=== PATIENT | female | born 1990 | race American Indian/Alaskan Native ===

== ENCOUNTER 2017-03-24 12:40 | Emergency (ER) | payer OTHER ==
[2017-03-24 13:43] LABS: Hematocrit 41.3 % (30.3-42.9); Hemoglobin 13.7 gm/dl (10.1-14.3); Mean Corpuscular HGB Conc 33 % (30-34); Mean Corpuscular Hemoglobin 27 pg (28-32); Mean Corpuscular Volume 80 fl (79-97); Platelet Count 429 K/mm3 (140-440); Red Blood Count 5.17 M/mm3 (3.65-5.03); White Blood Count 12.8 K/mm3 (4.5-11.0)
[2017-03-24 13:47] LABS: Anion Gap 19 mmol/L; BUN/Creatinine Ratio 18.33; Blood Urea Nitrogen 11 mg/dL (7-17); Calcium 9.2 mg/dL (8.4-10.2); Carbon Dioxide 21 mmol/L (22-30); Glucose 117 mg/dL (65-100); Potassium 4.4 mmol/L (3.6-5.0); Sodium 136 mmol/L (137-145)
[2017-03-24] MEDS ORDERED: NACL 0.9% 1000 ML 1,000 ML IV ONE (14:08)
[2017-03-24] MEDS ORDERED: REGLAN IV ONE (14:09)
[2017-03-24] MEDS ORDERED: BENADRYL IV ONE (14:09)
--- NOTE | 2017-03-24 14:10 | Emergency Department Report ---
ED Seizure HPI - General Chief Complaint: Seizure Stated Complaint: SEIZURE Time Seen by Provider: 03/24/17 14:01 Source: patient, family, EMS, RN notes reviewed Mode of arrival: Stretcher Limitations: No Limitations - History of Present Illness Initial Comments: This is a 26-year-old female. She is previously unknown to me. She does not have a primary care doctor. She reports a past medical history of seizure disorder. She is not taking any antiepileptic drugs. Patient brought to the hospital by EMS for out of hospital seizure. As per EMS documentation, patient alert and oriented 3. Patient complains of mild headache, which started yesterday, which is not similar thunderclap in nature. The headache did not recheck swollen intensity within an hour. There is no neck pain or neck stiffness. There is no chest pain or shortness of breath. There is no abdominal pain. There is no cough, there are no irritative or obstructive urinary symptoms. The patient did not bite her tongue, but she did not urinate or defecate on herself that she is aware of. She does complain of nonspecific generalized myoclonic jerks. She can't recall her last seizure prior to today. MD Complaint: seizure -: Sudden Description of Episode: loss of consciousness -: second(s) Witnessed:: Yes Trauma: No Seizure History: known seizure disorder, history of non-compliance Possible Precipitating Event: none Associated Symptoms: denies: chest pain, confusion, cough, fever/chills, loss of appetite, malaise Treatments Prior to Arrival: none - Related Data Previous Rx's Medication Instructions Recorded Last Taken Type levETIRAcetam [Keppra TAB] 1,000 mg PO BID #60 tab 03/24/17 Unknown Rx Allergies Allergy/AdvReac Type Severity Reaction Status Date / Time Penicillins Allergy Unknown Verified 03/24/17 13:04 ED Review of Systems ROS: Stated complaint: SEIZURE Other details as noted in HPI Constitutional: malaise. denies: fever Eyes: denies: vision change ENT: denies: epistaxis Respiratory: denies: cough Cardiovascular: denies: chest pain Gastrointestinal: denies: abdominal pain Genitourinary: denies: urgency, dysuria Musculoskeletal: denies: back pain Skin: denies: lesions Neurological: headache. denies: weakness Psychiatric: denies: anxiety ED Past Medical Hx - Past Medical History Previous Medical History?: Yes Hx Seizures: Yes - Surgical History Past Surgical History?: No - Social History Smoking Status: Unknown if ever smoked - Medications Home Medications: Home Medications Medication Instructions Recorded Confirmed Last Taken Type levETIRAcetam [Keppra TAB] 1,000 mg PO BID #60 tab 03/24/17 Unknown Rx ED Physical Exam - General Limitations: No Limitations General appearance: alert, anxious, obese, other (patient is awake, alert and talking, but is expansion nonspecific generalized jerking motion, which is bilateral and not lateralizing.) - Head Head exam: Present: atraumatic, normocephalic - Eye Eye exam: Present: normal appearance, PERRL, EOMI, other (visual acuity intact to finger counting, color perception, reading at a close distance). Absent: nystagmus - ENT ENT exam: Present: normal exam, normal orophraynx, mucous membranes moist, normal external ear exam - Neck Neck exam: Present: normal inspection, full ROM. Absent: tenderness, meningismus - Respiratory Respiratory exam: Present: normal lung sounds bilaterally. Absent: respiratory distress, wheezes, rales, rhonchi, stridor - Cardiovascular Cardiovascular Exam: Present: regular rate, normal rhythm, normal heart sounds. Absent: bradycardia, tachycardia, irregular rhythm, systolic murmur, diastolic murmur, rubs, gallop - GI/Abdominal GI/Abdominal exam: Present: soft, normal bowel sounds. Absent: distended, tenderness, guarding, rebound, rigid, pulsatile mass - Extremities Exam Extremities exam: Present: normal inspection, full ROM, normal capillary refill. Absent: tenderness, pedal edema, joint swelling - Back Exam Back exam: Present: normal inspection, full ROM. Absent: tenderness, CVA tenderness (R), CVA tenderness (L), muscle spasm, paraspinal tenderness, vertebral tenderness - Neurological Exam Neurological exam: Present: alert, oriented X3, normal gait, other (Extraocular movements intact. Tongue midline. No facial droop. Facial sensation intact to light touch in the V1, V2, V3 distribution bilaterally. 5 and 5 strength in 4 extremities.. Sensation is intact to light touch in 4 extremities.). Absent : motor sensory deficit - Psychiatric Psychiatric exam: Present: normal affect, normal mood - Skin Skin exam: Present: warm, dry, intact, normal color. Absent: rash ED Course Vital Signs 03/24/17 03/24/17 03/24/17 12:57 15:00 15:31 Temperature 98.8 F 99.0 F Pulse Rate 122 H 120 H Respiratory 16 16 Rate Blood Pressure 140/79 Blood Pressure 135/76 [Left] O2 Sat by Pulse 100 100 Oximetry 03/24/17 03/24/17 16:10 18:12 Temperature 99.3 F Pulse Rate 104 H 86 Respiratory 16 16 Rate Blood Pressure Blood Pressure 98/34 98/69 [Left] O2 Sat by Pulse 100 100 Oximetry ED Medical Decision Making - Lab Data Result diagrams: 03/24/17 13:18 03/24/17 13:18 Vital Signs 03/24/17 03/24/17 03/24/17 12:57 15:00 15:31 Temperature 98.8 F 99.0 F Pulse Rate 122 H 120 H Respiratory 16 16 Rate Blood Pressure 140/79 Blood Pressure 135/76 [Left] O2 Sat by Pulse 100 100 Oximetry 03/24/17 16:10 Temperature Pulse Rate 104 H Respiratory 16 Rate Blood Pressure Blood Pressure 98/34 [Left] O2 Sat by Pulse 100 Oximetry Lab Results 03/24/17 03/24/17 03/24/17 Range/Units 13:18 13:18 13:26 WBC 12.8 H (4.5-11.0) K/mm3 RBC 5.17 H (3.65-5.03) M/mm3 Hgb 13.7 (10.1-14.3) gm/dl Hct 41.3 (30.3-42.9) % MCV 80 (79-97) fl MCH 27 L (28-32) pg MCHC 33 (30-34) % RDW 15.0 (13.2-15.2) % Plt Count 429 (140-440) K/mm3 Add Manual Diff Complete Total Counted 100 Seg Neuts % (Manual) 71.0 H (40.0-70.0) % Band Neutrophils % 0 % Lymphocytes % (Manual) 18.0 (13.4-35.0) % Reactive Lymphs % (Man) 0 % Monocytes % (Manual) 6.0 (0.0-7.3) % Eosinophils % (Manual) 3.0 (0.0-4.3) % Basophils % (Manual) 1.0 (0.0-1.8) % Metamyelocytes % 1.0 % Myelocytes % 0 % Promyelocytes % 0 % Blast Cells % 0 % Nucleated RBC % Not Reportable Seg Neutrophils # Man 9.1 H (1.8-7.7) K/mm3 Band Neutrophils # 0.0 K/mm3 Lymphocytes # (Manual) 2.3 (1.2-5.4) K/mm3 Abs React Lymphs (Man) 0.0 K/mm3 Monocytes # (Manual) 0.8 (0.0-0.8) K/mm3 Eosinophils # (Manual) 0.4 (0.0-0.4) K/mm3 Basophils # (Manual) 0.1 (0.0-0.1) K/mm3 Metamyelocytes # 0.1 K/mm3 Myelocytes # 0.0 K/mm3 Promyelocytes # 0.0 K/mm3 Blast Cells # 0.0 K/mm3 WBC Morphology Not Reportable Hypersegmented Neuts Not Reportable Hyposegmented Neuts Not Reportable Hypogranular Neuts Not Reportable Smudge Cells Not Reportable Toxic Granulation Not Reportable Toxic Vacuolation Not Reportable Dohle Bodies Not Reportable Pelger-Huet Anomaly Not Reportable Antony Rods Not Reportable Platelet Estimate Appears normal Clumped Platelets Not Reportable Plt Clumps, EDTA Not Reportable Large Platelets Not Reportable Giant Platelets Not Reportable Platelet Satelliting Not Reportable Plt Morphology Comment Not Reportable RBC Morphology Normal Dimorphic RBCs Not Reportable Polychromasia Not Reportable Hypochromasia Not Reportable Poikilocytosis Not Reportable Anisocytosis Not Reportable Microcytosis Not Reportable Macrocytosis Not Reportable Spherocytes Not Reportable Pappenheimer Bodies Not Reportable Sickle Cells Not Reportable Target Cells Not Reportable Tear Drop Cells Not Reportable Ovalocytes Not Reportable Helmet Cells Not Reportable [place] Bodies Not Reportable [place] Rings Not Reportable [place] Cells Not Reportable Bite Cells Not Reportable Crenated Cell Not Reportable Elliptocytes Not Reportable Acanthocytes (Spur) Not Reportable Rouleaux Not Reportable Hemoglobin C Crystals Not Reportable Schistocytes Not Reportable Malaria parasites Not Reportable Vicente Bodies Not Reportable Hem Pathologist Commnt No Sodium 136 L (137-145) mmol/L Potassium 4.4 (3.6-5.0) mmol/L Chloride 100.0 (98-107) mmol/L Carbon Dioxide 21 L (22-30) mmol/L Anion Gap 19 mmol/L BUN 11 (7-17) mg/dL Creatinine 0.6 L (0.7-1.2) mg/dL Estimated GFR > 60 ml/min BUN/Creatinine Ratio 18.33 % Glucose 117 H (65-100) mg/dL Calcium 9.2 (8.4-10.2) mg/dL Total Creatine Kinase 159 H (30-135) units/L HCG, Quant (0-4) mIU/mL Urine Color (Yellow) Urine Turbidity (Clear) Urine pH (5.0-7.0) Ur Specific [place] (1.003-1.030) Urine Protein (Negative) mg/dL Urine Glucose (UA) (Negative) mg/dL Urine Ketones (Negative) mg/dL Urine Blood (Negative) Urine Nitrite (Negative) Urine Bilirubin (Negative) Urine Urobilinogen (<2.0) mg/dL Ur Leukocyte Esterase (Negative) Urine WBC (Auto) (0.0-6.0) /HPF Urine RBC (Auto) (0.0-6.0) /HPF U Epithel Cells (Auto) (0-13.0) /HPF Urine HCG, Qual (Negative) Urine Opiates Screen Urine Methadone Screen Ur Barbiturates Screen Ur Phencyclidine Scrn Ur Amphetamines Screen U Benzodiazepines Scrn Urine Cocaine Screen U Marijuana (THC) Screen Drugs of Abuse Note 03/24/17 03/24/17 03/24/17 Range/Units 14:13 14:50 14:50 WBC (4.5-11.0) K/mm3 RBC (3.65-5.03) M/mm3 Hgb (10.1-14.3) gm/dl Hct (30.3-42.9) % MCV (79-97) fl MCH (28-32) pg MCHC (30-34) % RDW (13.2-15.2) % Plt Count (140-440) K/mm3 Add Manual Diff Total Counted Seg Neuts % (Manual) (40.0-70.0) % Band Neutrophils % % Lymphocytes % (Manual) (13.4-35.0) % Reactive Lymphs % (Man) % Monocytes % (Manual) (0.0-7.3) % Eosinophils % (Manual) (0.0-4.3) % Basophils % (Manual) (0.0-1.8) % Metamyelocytes % % Myelocytes % % Promyelocytes % % Blast Cells % % Nucleated RBC % Seg Neutrophils # Man (1.8-7.7) K/mm3 Band Neutrophils # K/mm3 Lymphocytes # (Manual) (1.2-5.4) K/mm3 Abs React Lymphs (Man) K/mm3 Monocytes # (Manual) (0.0-0.8) K/mm3 Eosinophils # (Manual) (0.0-0.4) K/mm3 Basophils # (Manual) (0.0-0.1) K/mm3 Metamyelocytes # K/mm3 Myelocytes # K/mm3 Promyelocytes # K/mm3 Blast Cells # K/mm3 WBC Morphology Hypersegmented Neuts Hyposegmented Neuts Hypogranular Neuts Smudge Cells Toxic Granulation Toxic Vacuolation Dohle Bodies Pelger-Huet Anomaly Antony Rods Platelet Estimate Clumped Platelets Plt Clumps, EDTA Large Platelets Giant Platelets Platelet Satelliting Plt Morphology Comment RBC Morphology Dimorphic RBCs Polychromasia Hypochromasia Poikilocytosis Anisocytosis Microcytosis Macrocytosis Spherocytes Pappenheimer Bodies Sickle Cells Target Cells Tear Drop Cells Ovalocytes Helmet Cells [place] Bodies [place] Rings [place] Cells Bite Cells Crenated Cell Elliptocytes Acanthocytes (Spur) Rouleaux Hemoglobin C Crystals Schistocytes Malaria parasites Vicente Bodies Hem Pathologist Commnt Sodium (137-145) mmol/L Potassium (3.6-5.0) mmol/L Chloride (98-107) mmol/L Carbon Dioxide (22-30) mmol/L Anion Gap mmol/L BUN (7-17) mg/dL Creatinine (0.7-1.2) mg/dL Estimated GFR ml/min BUN/Creatinine Ratio % Glucose (65-100) mg/dL Calcium (8.4-10.2) mg/dL Total Creatine Kinase (30-135) units/L HCG, Quant < 2 (0-4) mIU/mL Urine Color Straw (Yellow) Urine Turbidity Clear (Clear) Urine pH 8.0 H (5.0-7.0) Ur Specific [place] 1.014 (1.003-1.030) Urine Protein <15 mg/dl (Negative) mg/dL Urine Glucose (UA) Neg (Negative) mg/dL Urine Ketones Neg (Negative) mg/dL Urine Blood Mod (Negative) Urine Nitrite Neg (Negative) Urine Bilirubin Neg (Negative) Urine Urobilinogen < 2.0 (<2.0) mg/dL Ur Leukocyte Esterase Neg (Negative) Urine WBC (Auto) 6.0 (0.0-6.0) /HPF Urine RBC (Auto) 2.0 (0.0-6.0) /HPF U Epithel Cells (Auto) 1.0 (0-13.0) /HPF Urine HCG, Qual Negative (Negative) Urine Opiates Screen Presumptive negative Urine Methadone Screen Presumptive negative Ur Barbiturates Screen Presumptive negative Ur Phencyclidine Scrn Presumptive negative Ur Amphetamines Screen Presumptive negative U Benzodiazepines Scrn Presumptive negative Urine Cocaine Screen Presumptive negative U Marijuana (THC) Screen Presumptive negative Drugs of Abuse Note Disclamer - EKG Data -: EKG Interpreted by La - EKG Data 03/24/17 17:57 Sinus tachycardia, 114 bpm, normal axis, normal intervals, not morphologically consistent with STEMI, high left ventricular voltage - Radiology Data Radiology results: report reviewed, image reviewed Noncontrast CT scan of the brain is negative. X-ray the chest is negative - Medical Decision Making Differential diagnosis: Seizure, partial seizure, pseudoseizure, conversion disorder, pneumonia, urinary tract infection, migraine headache, tension headache, cluster headache Assessment and plan: 26-year-old female with reported history of seizures, currently not on antiepileptic drugs. She is afebrile, her tachycardia has resolved, she has a GCS of 15, with an NIH score of 0 and is clinically sober. She is loaded with 1 g of Keppra, given 2 mg of Ativan for her myoclonic jerks, given Reglan and Benadryl for her headache. She is observed in the ER for a prolonged time without clinical decompensation. She is clinically sober at this time, when walks with a steady gait. She will be started empirically on Keppra, and instructed to follow up with outpatient neurology. Patient instructed to not drive or operate motor vehicles for the next 6 months. Critical care attestation.: If time is entered above; I have spent that time in minutes in the direct care of this critically ill patient, excluding procedure time. ED Disposition Clinical Impression: Convulsion Disposition: DC-01 TO HOME OR SELFCARE Is pt being admited?: No Does the pt Need Aspirin: No Condition: Stable Instructions: Recurrent Seizures Adult (ED) Additional Instructions: Do not drive her car or operate motor vehicles for the next 6 months unless cleared by either primary care or neurology. Take seizure medication as directed. Follow up within the next 7-10 days with either primary care or neurology specialist. It is very important to closely follow up as directed, and to take his seizure medication as directed. Noncompliance with seizure medication may result in breakthrough seizure, which can cause , disability , paralysis, loss of quality of life. Return to the ER right away with fevers, chills, chest pain, shortness of breath, confusion, intractable nausea or vomiting, inability to tolerate liquid feeds. Prescriptions: levETIRAcetam [Keppra TAB] 1,000 mg PO BID #60 tab Referrals: PRIMARY MD CARMEL [Primary Care Provider] - 3-5 Days SINA HOOKER MD [Staff Physician] - 3-5 Days CYNTHIA EUCEDA MD [Staff Physician] - 3-5 Days MATTHEW MADDOX MD [Staff Physician] - 3-5 Days BIMAL AU MD [Staff Physician] - 3-5 Days GISEL CAI MD [Staff Physician] - 3-5 Days [facility] [Provider Group] - 3-5 Days
[2017-03-24] MEDS ORDERED: KEPPRA 1,000 MG in D5W 100 ML IV ONE (14:30)
[2017-03-24] MEDS ORDERED: KEPPRA 1,000 MG/NS 0.75% 100ML 1,000 MG/100 ML BAG IV ONE (14:49)
[2017-03-24 15:02] LABS: Urine Drugs of Abuse Note Disclamer
[2017-03-24 15:04] LABS: Blastocytes % (Manual) 0 %
[2017-03-24 15:05] LABS: Diff Status Complete; RBC Morphology Normal
--- NOTE | 2017-03-24 15:07 | XRay Report ---
PORTABLE CHEST INDICATION: Seizure tachycardia. Evaluate for pneumonia. COMPARISON: None similar at this institution. FINDINGS: Portable, frontal chest radiograph demonstrates limited inspiration with mild exaggerated cardiomediastinal silhouette; cardiomegaly not excluded. Slightly crowded bronchovascular markings centrally. Right hemidiaphragm mildly elevated. No large pleural effusions or cephalization. EKG leads. Intact bones. CONCLUSION: Borderline cardiomegaly, as described. Thank you for the opportunity to participate in this patient's care.
[2017-03-24] MEDS ORDERED: ATIVAN IV ONE (15:12)
[2017-03-24 15:18] LABS: Bilirubin,Urine NEG (Negative); Blood,Urine MOD (Negative); Ketones,Urine NEG (Negative); Leukocyte Esterase,Urine NEG (Negative); Nitrite,Urine NEG (Negative); Protein,Urine <15 mg/dL mg/dL (Negative); Urobilinogen,Urine < 2.0 mg/dL (<2.0)
--- NOTE | 2017-03-24 15:35 | Cat Scan Report ---
CT HEAD WITHOUT CONTRAST: HISTORY: Headache, seizure. Serial contiguous axial images were obtained through the cranium. Intravenous contrast material was not administered. The ventricles are normal in size and appearance. There is no mass effect or midline shift. No areas of abnormally increased or decreased attenuation are seen. No mass lesion is seen. The mastoid air cells and visualized portions of the sinuses are normal. IMPRESSION: Cranial CT scan within normal limits.
[2017-03-24 18:13] VITALS: BP 98/69
== END 2017-03-24 18:16 | disposition home or self-care (01) ==
LOC: ED 12:40
DX: R56.9 Unspecified convulsions (principal); Z88.0 Allergy status to penicillin
CPT/HCPCS: 36415; 51701; 70450; 71010; 80048; 80307; 81001; 81025; 82550; 84702; 85007; 85025; 93005; 93010; 96365; 96375; 99285; J1200; J1953; J2060; J2765; J7030